=== PATIENT | female | born 1955 | race Caucasian/White ===

== ENCOUNTER → 2017-04-12 | Outpatient (CLI) | payer OTHER ==
[2017-04-12 12:54] LABS: ALANINE AMINOTRANSFERASE 31 U/L (9-52); ALBUMIN 3.9 g/dL (3.5-5.0); ALKALINE PHOSPHATASE 88 U/L (38-126); ANION GAP 9 (5-19); ASPARTATE AMINO TRANSFERASE 21 U/L (14-36); BILIRUBIN,DIRECT 0.4 mg/dL (0.0-0.4); BILIRUBIN,TOTAL 0.6 mg/dL (0.2-1.3); BLOOD UREA NITROGEN 24 mg/dL (7-20); CALCIUM 9.5 mg/dL (8.4-10.2); CARBON DIOXIDE 29 mmol/L (22-30); CHLORIDE 101 mmol/L (98-107); CHOLESTEROL 174.56 mg/dL (0-200); CREATININE RESULT 1.38 mg/dL (0.52-1.25); Direct HDL 53 mg/dL (>40); GLUCOSE 146 mg/dL (75-110); SODIUM 139.2 mmol/L (137-145); TOTAL PROTEIN 7.3 g/dL (6.3-8.2); TRIGLYCERIDES 123 mg/dL (<150)
[2017-04-12 13:12] LABS: DIRECT LDL 85 mg/dL (<100)
== END ==
LOC: CCC 11:25
DX: E11.8 Type 2 diabetes mellitus with unspecified complications (principal)
CPT/HCPCS: 36415; 80053; 80061; 82043; 83036

== ENCOUNTER → 2017-06-26 | Outpatient (CLI) | payer OTHER ==
--- NOTE | 2017-06-26 14:58 | WOMENS IMAGING REPORT ---
EXAM DESCRIPTION: RETROPERITONEAL U/S COMPLETED DATE/TIME: 06/26/2017 1:34 pm REASON FOR STUDY: CHRONIC KIDNEY DISEASE; N18.3 N18.3 CHRONIC KIDNEY DISEASE, STAGE 3 (MODERATE) COMPARISON: None. TECHNIQUE: Dynamic and static grayscale images acquired of the kidneys and bladder and recorded on P ACS. Additional selected color Doppler and spectral images recorded. LIMITATIONS: None. FINDINGS: RIGHT KIDNEY: Normal size. Increased cortical echogenicity. No solid or suspicious ma sses. No hydronephrosis. No calcifications. LEFT KIDNEY: Normal size. Increased cortical echogenicity. No solid or suspicious masses. No h ydronephrosis. No calcifications. BLADDER: No masses. OTHER: No other significant finding. IMPRESSION: CHRONIC MEDICAL RENAL DISEASE. NO HYDRONEPHROSIS. TECHNICAL DOCUMENTATION: JOB ID: [id number] [employer]- All Rights Reserved
== END ==
LOC: WI 13:06
DX: E11.22 Type 2 diabetes mellitus with diabetic chronic kidney disease (principal); I12.9 Hypertensive chronic kidney disease with stage 1 through stage 4 chronic kidney disease, or unspecified chronic kidney disease; N18.3 Chronic kidney disease, stage 3 (moderate)
CPT/HCPCS: 76770

== ENCOUNTER → 2017-08-08 | Outpatient (CLI) | payer OTHER ==
[2017-08-08 10:56] LABS: ABSOLUTE BASOPHILS # (AUTO) 0.1 10^3/uL (0.0-0.2); ABSOLUTE EOSINOPHILS # (AUTO) 0.2 10^3/uL (0.0-0.6); ABSOLUTE LYMPHOCYTES (AUTO) 2.7 10^3/uL (0.5-4.7); ABSOLUTE MONOCYTES (AUTO) 0.5 10^3/uL (0.1-1.4); ABSOLUTE NEUT (AUTO) 5.4 10^3/uL (1.7-8.2); BASOPHILS % (AUTO) 0.6 % (0-2); EOSINOPHILS % (AUTO) 2.7 % (0-6); HEMATOCRIT 38.1 % (36.0-47.0); HEMOGLOBIN 12.8 g/dL (12.0-15.5); HGB HCT DIFFERENCE 0.3; LYMPHOCYTES % (AUTO) 30.1 % (13-45); MEAN CORPUSCULAR HEMOGLOBIN 29.7 pg (27.0-33.4); MEAN CORPUSCULAR HGB CONC 33.7 g/dL (32.0-36.0); MEAN CORPUSCULAR VOLUME 88 fl (80-97); MONOCYTES % (AUTO) 5.4 % (3-13); RED BLOOD COUNT 4.31 10^6/uL (3.72-5.28); RED CELL DISTRIBUTION WIDTH 12.1 % (11.5-14.0); SEGMENTED NEUTROPHILS % (AUTO) 61.2 % (42-78); WHITE BLOOD COUNT 8.9 10^3/uL (4.0-10.5)
[2017-08-08 11:00] LABS: APPEARANCE,URINE SLIGHTLY-CLOUDY; BILIRUBIN,URINE NEGATIVE (NEGATIVE); GLUCOSE, URINE >=500 mg/dL (NEGATIVE); KETONES,URINE NEGATIVE (NEGATIVE); LEUKOCYTE ESTERASE,URINE MODERATE (NEGATIVE); NITRITE,URINE NEGATIVE (NEGATIVE); PROTEIN,URINE NEGATIVE (NEGATIVE)
[2017-08-08 11:18] LABS: ALANINE AMINOTRANSFERASE 27 U/L (9-52); ALKALINE PHOSPHATASE 81 U/L (38-126); ANION GAP 11 (5-19); ASPARTATE AMINO TRANSFERASE 17 U/L (14-36); BILIRUBIN,DIRECT 0.4 mg/dL (0.0-0.4); BILIRUBIN,TOTAL 0.5 mg/dL (0.2-1.3); BLOOD UREA NITROGEN 30 mg/dL (7-20); CALCIUM 9.2 mg/dL (8.4-10.2); CARBON DIOXIDE 29 mmol/L (22-30); CHLORIDE 99 mmol/L (98-107); CREATININE RESULT 1.57 mg/dL (0.52-1.25); GLUCOSE 184 mg/dL (75-110); IRON 90.1 ug/dL (37-170); POTASSIUM 4.5 mmol/L (3.6-5.0); SODIUM 139.3 mmol/L (137-145); TOTAL PROTEIN 7.1 g/dL (6.3-8.2)
== END ==
LOC: CCC 10:18
DX: I12.9 Hypertensive chronic kidney disease with stage 1 through stage 4 chronic kidney disease, or unspecified chronic kidney disease (principal); N18.3 Chronic kidney disease, stage 3 (moderate)
CPT/HCPCS: 36415; 80053; 81001; 82306; 82728; 83540; 83970; 85025

== ENCOUNTER → 2017-11-03 | Outpatient (CLI) | payer OTHER ==
[2017-11-03 12:28] LABS: ANION GAP 9 (5-19); BLOOD UREA NITROGEN 28 mg/dL (7-20); CALCIUM 9.4 mg/dL (8.4-10.2); CARBON DIOXIDE 31 mmol/L (22-30); CHLORIDE 96 mmol/L (98-107); GLUCOSE 249 mg/dL (75-110); POTASSIUM 5.2 mmol/L (3.6-5.0); SODIUM 136.3 mmol/L (137-145)
== END ==
LOC: CCC 11:22
DX: E11.9 Type 2 diabetes mellitus without complications (principal); N18.3 Chronic kidney disease, stage 3 (moderate)
CPT/HCPCS: 36415; 80048; 83036

== ENCOUNTER 2017-12-17 12:36 | Emergency (ER) | payer SELFPAY ==
--- NOTE | 2017-12-17 13:49 | ER Document Report ---
ED Breast Problem - General Chief Complaint: Breast Lump Stated Complaint: POSSIBLE BREAST ABSCESS Time Seen by Provider: 12/17/17 13:48 Notes: The patient is a 62-year-old female who presents with 1 day of a breast lump that is tender in her medial left breast that she noticed this morning. She says is worse this morning, but has gone away. Patient was supposed to have a mammogram, but has been putting off scheduling it. Patient also has a yeast rash below her left breast that she is applying antifungals prescribed by her primary care physician. She denies discharge from her nipples, fevers or increased pain. TRAVEL OUTSIDE OF THE [place] IN LAST 30 DAYS: No - Related Data Allergies/Adverse Reactions: No Known Allergies Allergy (Verified 10/30/13 22:25) Past Medical History - General Information source: Patient - Social History Smoking Status: Current Every Day Smoker Chew tobacco use (# tins/day): No Frequency of alcohol use: None Drug Abuse: None Family History: DM, Hypertension Patient has suicidal ideation: No Patient has homicidal ideation: No - Past Medical History Cardiac Medical History: Reports: Hx Hypertension Endocrine Medical History: Reports: Hx Diabetes Mellitus Type 2 Renal/ Medical History: Denies: Hx Peritoneal Dialysis - Immunizations Immunizations up to date: Yes Hx Diphtheria, Pertussis, Tetanus Vaccination: Yes Hx Pneumococcal Vaccination: 04/27/14 Review of Systems - Review of Systems Notes: REVIEW OF SYSTEMS: CONSTITUTIONAL: -fevers, -chills EENT: -eye pain, -difficulty swallowing, -nasal congestion CARDIOVASCULAR: -chest pain, -syncope. RESPIRATORY: -cough, -SOB GASTROINTESTINAL: -abdominal pain, -nausea, -vomiting, -diarrhea GENITOURINARY: -dysuria, -hematuria MUSCULOSKELETAL: -back pain, -neck pain SKIN: +left breast lump HEMATOLOGIC: -easy bruising or bleeding. LYMPHATIC: -swollen, enlarged glands. NEUROLOGICAL: -altered mental status or loss of consciousness, -headache, - neurologic symptoms PSYCHIATRIC: -anxiety, -depression. ALL OTHER SYSTEMS REVIEWED AND NEGATIVE. Physical Exam - Vital signs Vitals: Temp Pulse Resp BP Pulse Ox 97.8 F 94 20 118/71 96 12/17/17 12:46 12/17/17 12:46 12/17/17 12:46 12/17/17 12:46 04/22/18 12:46 - Notes Notes: PHYSICAL EXAMINATION: GENERAL: Well-appearing, well-nourished and in no acute distress. HEAD: Atraumatic, normocephalic. EYES: Pupils equal round and reactive to light, extraocular movements intact, sclera anicteric, conjunctiva are normal. ENT: nares patent, oropharynx clear without exudates. Moist mucous membranes. NECK: Normal range of motion, supple without lymphadenopathy BREAST: (Chaperoned by KALIA Duncan). Non-tender breasts, no lumps or abscesses seen or palpated. Erythematous rash below left breast, consistent with quincy. ABDOMEN: Soft, nontender, normoactive bowel sounds. No guarding, no rebound. No masses appreciated. EXTREMITIES: Normal range of motion, no pitting or edema. No cyanosis. NEUROLOGICAL: Cranial nerves grossly intact. Normal speech, normal gait. Normal sensory and motor exams. PSYCH: Normal mood, normal affect. Course - Re-evaluation Re-evalutation: No abscess or lump palpated. Patient said that it has gone away since this morning. Told her that she still must follow-up for a mammogram recommended by her primary care physician due to her age. She said she will call tomorrow for an appointment. - Vital Signs Vital signs: Temp Pulse Resp BP Pulse Ox 97.8 F 94 20 118/71 96 12/17/17 12:46 12/17/17 12:46 12/17/17 12:46 12/17/17 12:46 12/17/17 12:46 Discharge - Discharge Clinical Impression: Breast lump in female Condition: Stable Disposition: HOME, SELF-CARE Additional Instructions: You must follow-up with the [facility] for your mammogram. Breast Lumps There is a lump in your breast. We realize this will worry you. Most breast masses are not cancer. Most breast masses are fibrocystic disease, simple cysts, or fibroadenoma, which are benign. The first step is usually a mammogram or ultrasound of the breast. Your private physician, or a surgeon, can complete the evaluation. Be sure to keep your follow-up appointment. If the lump is malignant, early removal is your best chance of a cure. Referrals: [facility] [Outside] - Follow up as needed
[2017-12-17 14:06] VITALS: BP 132/75
== END 2017-12-17 14:05 | disposition home or self-care (01) ==
LOC: ER 12:36
DX: N63.0 Unspecified lump in unspecified breast (principal); B37.2 Candidiasis of skin and nail; I10 Essential (primary) hypertension; E11.9 Type 2 diabetes mellitus without complications; F17.200 Nicotine dependence, unspecified, uncomplicated
CPT/HCPCS: 99283

== ENCOUNTER 2018-01-01 14:20 | Emergency (ER) | payer SELFPAY ==
[2018-01-01 14:44] VITALS: BP 121/66
--- NOTE | 2018-01-01 16:13 | ER Document Report ---
HPI - HPI Pain Level: 5 Notes: Patient is a 62-year-old female with a history of type 1 diabetes and hypertension who presents to the ED complaining of a red rash underneath her left breast 3 weeks. The rash has a burning sensation to it. Patient states that she was evaluated by her primary care doctor who prescribed her mupirocin cream. Patient states that the cream has not been doing anything for her symptoms. She has not noticed any abscess or purulent discharge. She is eating and drinking without difficulties. She is urinating normally and having normal bowel moods. Denies any drug allergies. Denies any IV drug use. No other concerns or complaints at this time. Denies any headache, fever, neck pain, URI, sore throat, chest pain, palpitations, syncope, cough, shortness of breath, wheeze, dyspnea, abdominal pain, nausea/vomiting/diarrhea, urinary retention, dysuria, hematuria. - ROS Systems Reviewed and Negative: Yes All other systems reviewed and negative - REPRODUCTIVE Reproductive: DENIES: : Past Medical History - Social History Smoking Status: Never Smoker Chew tobacco use (# tins/day): No Frequency of alcohol use: None Drug Abuse: None Family History: DM, Hypertension Patient has suicidal ideation: No Patient has homicidal ideation: No - Past Medical History Cardiac Medical History: Reports: Hx Hypertension Endocrine Medical History: Reports: Hx Diabetes Mellitus Type 2 Renal/ Medical History: Denies: Hx Peritoneal Dialysis - Immunizations Immunizations up to date: Yes Hx Diphtheria, Pertussis, Tetanus Vaccination: Yes Hx Pneumococcal Vaccination: 04/27/14 Vertical Provider Document - CONSTITUTIONAL Agree With Documented VS: Yes Notes: PHYSICAL EXAMINATION: GENERAL: Well-appearing, well-nourished and in no acute distress. Chest: (accompanied by female nurse, balbina). There is a fungal infection ( macular, moist, no induration/abscess/streaks/discharge) noted to the crease of the left breast. Non-tender. LUNGS: Breath sounds clear to auscultation bilaterally and equal. No wheezes rales or rhonchi. HEART: Regular rate and rhythm without murmurs, rubs, gallops. NEUROLOGICAL: Normal speech, normal gait. Normal sensory, motor exams PSYCH: Normal mood, normal affect. SKIN: see 'chest' exam. Warm, Dry, normal turgor, no rashes or lesions noted. - INFECTION CONTROL TRAVEL OUTSIDE OF THE .[place]. IN LAST 30 DAYS: No Course - Re-evaluation Re-evalutation: 01/01/18 16:11 Patient is an afebrile, well-hydrated, 62-year-old female who presents to the ED with a fungal infection inferior to the left breast in the crease. Vitals are acceptable. PE is otherwise unremarkable. Patient was placed on mupirocin cream originally. It appears as though patient should be on an antifungal cream which I will send her home with. Because she is diabetic and the extent of the fungal infection, I will prophylactically give her Keflex to take as well as directed. Conservative measures otherwise for symptoms. Recheck with your PCM in 3-5 days. Return to the ED with any worsening/concerning symptoms otherwise as reviewed discharge. Patient is in agreement. - Vital Signs Vital signs: Temp Pulse Resp BP Pulse Ox 98.6 F 90 16 121/66 96 01/01/18 14:41 01/01/18 14:41 01/01/18 14:41 01/01/18 14:41 01/01/18 14:41 Discharge - Discharge Clinical Impression: Tinea cruris Condition: Stable Disposition: HOME, SELF-CARE Instructions: Skin Fungus ([facility]) Additional Instructions: Keep the skin clean and dry Wash with soap and water Tylenol/ibuprofen if needed Triple antibiotic ointment daily Take medication as directed Monitor for any worsening symptoms Recheck with your PCM in 3-5 days Consider consult with Dermatology for ongoing/worsening symptoms Return to the ED with any worsening symptoms and/or development of fever, headache, chest pain, palpitations, syncope, shortness of breath, trouble breathing, abdominal pain, n/v/d, abscess, purulent discharge, red streaks, worsening swelling, or other worsening symptoms that are concerning to you. Prescriptions: Clotrimazole [Antifungal] 1 applic TP BID #113 cream..g. Nystatin 1 applic TOP DAILY #1 unit Referrals: JEFF CARBAJAL DO [ACTIVE STAFF] - Follow up as needed
== END 2018-01-01 16:29 | disposition home or self-care (01) ==
LOC: ER 14:20
DX: B35.6 Tinea cruris (principal); E10.9 Type 1 diabetes mellitus without complications; I10 Essential (primary) hypertension
CPT/HCPCS: 99282

== ENCOUNTER → 2018-01-15 | Outpatient (CLI) | payer OTHER ==
[2018-01-15 11:05] LABS: ABSOLUTE BASOPHILS # (AUTO) 0.1 10^3/uL (0.0-0.2); ABSOLUTE EOSINOPHILS # (AUTO) 0.2 10^3/uL (0.0-0.6); ABSOLUTE LYMPHOCYTES (AUTO) 2.5 10^3/uL (0.5-4.7); ABSOLUTE MONOCYTES (AUTO) 0.6 10^3/uL (0.1-1.4); ABSOLUTE NEUT (AUTO) 6.1 10^3/uL (1.7-8.2); BASOPHILS % (AUTO) 0.7 % (0-2); EOSINOPHILS % (AUTO) 2.4 % (0-6); HEMATOCRIT 38.7 % (36.0-47.0); HEMOGLOBIN 13.2 g/dL (12.0-15.5); LYMPHOCYTES % (AUTO) 26.6 % (13-45); MEAN CORPUSCULAR HEMOGLOBIN 30.7 pg (27.0-33.4); MEAN CORPUSCULAR HGB CONC 34.2 g/dL (32.0-36.0); MEAN CORPUSCULAR VOLUME 90 fl (80-97); MONOCYTES % (AUTO) 5.8 % (3-13); PLATELET COUNT 237 10^3/uL (150-450); RED BLOOD COUNT 4.32 10^6/uL (3.72-5.28); RED CELL DISTRIBUTION WIDTH 12.1 % (11.5-14.0); SEGMENTED NEUTROPHILS % (AUTO) 64.5 % (42-78); TOTAL CELLS COUNTED % (AUTO) 100 %; WHITE BLOOD COUNT 9.5 10^3/uL (4.0-10.5)
[2018-01-15 11:36] LABS: ANION GAP 12 (5-19); BLOOD UREA NITROGEN 37 mg/dL (7-20); C-REACTIVE PROTEIN 17.6 mg/L (<10.0); CALCIUM 9.8 mg/dL (8.4-10.2); CARBON DIOXIDE 29 mmol/L (22-30); CHLORIDE 100 mmol/L (98-107); GLUCOSE 174 mg/dL (75-110); POTASSIUM 5.6 mmol/L (3.6-5.0); SODIUM 141.4 mmol/L (137-145)
[2018-01-15 11:46] LABS: ERYTHROCYTE SEDIMENTATION RATE 45 mm/hr (0-30)
== END ==
LOC: CCC 10:19
DX: E11.22 Type 2 diabetes mellitus with diabetic chronic kidney disease (principal); N18.3 Chronic kidney disease, stage 3 (moderate)
CPT/HCPCS: 36415; 80048; 85025; 85652; 86140

== ENCOUNTER → 2018-01-16 | Outpatient (CLI) | payer OTHER | LOC: CCC 16:04 | DX: E87.5 Hyperkalemia (principal) | CPT/HCPCS: 36415; 84132 ==

== ENCOUNTER → 2018-02-19 | Outpatient (CLI) | payer OTHER ==
[2018-02-19 11:55] LABS: ALANINE AMINOTRANSFERASE 29 U/L (9-52); ALBUMIN 4.1 g/dL (3.5-5.0); ALKALINE PHOSPHATASE 77 U/L (38-126); ANION GAP 10 (5-19); ASPARTATE AMINO TRANSFERASE 19 U/L (14-36); BILIRUBIN,DIRECT 0.3 mg/dL (0.0-0.4); BILIRUBIN,TOTAL 0.5 mg/dL (0.2-1.3); BLOOD UREA NITROGEN 56 mg/dL (7-20); CALCIUM 9.5 mg/dL (8.4-10.2); CARBON DIOXIDE 32 mmol/L (22-30); CHLORIDE 99 mmol/L (98-107); CHOLESTEROL 164.78 mg/dL (0-200); GLUCOSE 214 mg/dL (75-110); SODIUM 141.3 mmol/L (137-145); TOTAL PROTEIN 7.2 g/dL (6.3-8.2); TRIGLYCERIDES 135 mg/dL (<150)
[2018-02-19 12:06] LABS: DIRECT LDL 79 mg/dL (<100)
== END ==
LOC: OD 10:23
DX: E11.8 Type 2 diabetes mellitus with unspecified complications (principal)
CPT/HCPCS: 36415; 80053; 80061; 82272; 83036; 84443

== ENCOUNTER → 2018-03-20 | Outpatient (CLI) | payer OTHER ==
[2018-03-20 11:56] LABS: ANION GAP 13 (5-19); BLOOD UREA NITROGEN 43 mg/dL (7-20); CALCIUM 8.8 mg/dL (8.4-10.2); CARBON DIOXIDE 28 mmol/L (22-30); CHLORIDE 98 mmol/L (98-107); GLUCOSE 194 mg/dL (75-110); POTASSIUM 4.3 mmol/L (3.6-5.0); SODIUM 139.4 mmol/L (137-145)
== END ==
LOC: OD 11:05
DX: E11.8 Type 2 diabetes mellitus with unspecified complications (principal); I10 Essential (primary) hypertension
CPT/HCPCS: 36415; 80048

== ENCOUNTER → 2018-04-10 | Outpatient (CLI) | payer OTHER ==
[2018-04-10 10:36] LABS: ALANINE AMINOTRANSFERASE 23 U/L (9-52); ALBUMIN 4.1 g/dL (3.5-5.0); ALKALINE PHOSPHATASE 66 U/L (38-126); ANION GAP 13 (5-19); ASPARTATE AMINO TRANSFERASE 21 U/L (14-36); BILIRUBIN,DIRECT 0.3 mg/dL (0.0-0.4); BILIRUBIN,TOTAL 0.4 mg/dL (0.2-1.3); BLOOD UREA NITROGEN 43 mg/dL (7-20); CALCIUM 9.3 mg/dL (8.4-10.2); CARBON DIOXIDE 26 mmol/L (22-30); CHLORIDE 104 mmol/L (98-107); CHOLESTEROL 170.28 mg/dL (0-200); GLUCOSE 154 mg/dL (75-110); POTASSIUM 4.8 mmol/L (3.6-5.0); SODIUM 143.2 mmol/L (137-145); TOTAL PROTEIN 7.5 g/dL (6.3-8.2); TRIGLYCERIDES 76 mg/dL (<150)
[2018-04-10 10:47] LABS: DIRECT LDL 83 mg/dL (<100)
== END ==
LOC: CCC 08:11
DX: E11.8 Type 2 diabetes mellitus with unspecified complications (principal)
CPT/HCPCS: 36415; 80053; 80061; 82272; 83036; 84443

== ENCOUNTER → 2018-06-06 | Outpatient (CLI) | payer OTHER ==
[2018-06-06 13:49] LABS: IRON(TIBC) 35.8 ug/dL (37-170)
== END ==
LOC: OD 12:55
DX: E11.22 Type 2 diabetes mellitus with diabetic chronic kidney disease (principal); N18.3 Chronic kidney disease, stage 3 (moderate)
CPT/HCPCS: 36415; 82306; 82728; 83540; 83550; 83970; 84100; 84466

== ENCOUNTER 2018-09-26 09:10 | Emergency (ER) | payer SELFPAY ==
[2018-09-26 09:19] VITALS: BP 142/75
[2018-09-26] MEDS ORDERED: LIDOCAINE 5% (700 MG) TRANSDERMAL ADH..PATCH TP ONE (09:34)
--- NOTE | 2018-09-26 09:35 | ER Document Report ---
HPI - HPI Time Seen by Provider: 09/26/18 09:23 Pain Level: 2 Notes: Patient is a 63-year-old female with a history of diabetes who presents the emergency department complaining of left deltoid pain after receiving a flu vaccine 2-3 months ago. Patient states that she has had pain that has remained unchanged every day. Patient states that she was evaluated by her primary care doctor who told her to use warm soaks. Patient states that the pain does feel like a burning pain that will go down into the forearm on the posterior side at times. Patient states that she still able to perform her ADLs any difficulties. She has not noticed any bruising, deformity, swelling, or redness. Denies drug allergies. No other concerns or complaints. Denies any headache, fever, head injury, neck pain, changes in vision/speech/mentation/hearing, URI, sore throat, chest pain, palpitations, syncope, cough, shortness of breath, wheeze, dyspnea, abdominal pain, nausea/vomiting/diarrhea, urinary retention, dysuria, hematuria, loss of control of bowel or bladder, numbness/tingling, saddle anesthesia, muscle paralysis/weakness, or rash. - ROS Systems Reviewed and Negative: Yes All other systems reviewed and negative - REPRODUCTIVE Reproductive: DENIES: : Past Medical History - Social History Smoking Status: Unknown if Ever Smoked Family History: DM, Hypertension - Past Medical History Cardiac Medical History: Reports: Hx Hypertension Endocrine Medical History: Reports: Hx Diabetes Mellitus Type 2 Renal/ Medical History: Denies: Hx Peritoneal Dialysis - Immunizations Immunizations up to date: Yes Hx Diphtheria, Pertussis, Tetanus Vaccination: Yes Hx Pneumococcal Vaccination: 04/27/14 Vertical Provider Document - CONSTITUTIONAL Agree With Documented VS: Yes Notes: PHYSICAL EXAMINATION: GENERAL: Well-appearing, well-nourished and in no acute distress. NECK: Normal range of motion, supple without lymphadenopathy. Non-tender. Spurling negative. No rigidity/meningismus. LUNGS: Breath sounds clear to auscultation bilaterally and equal. No wheezes rales or rhonchi. HEART: Regular rate and rhythm without murmurs, rubs, gallops. Musculoskeletal: Lt shoulder: FROM to passive/active. Strength 5+/5. Neg impingement test. Neg speed test. No crepitus. No erythema or warmth. No deformity or ecchymosis. RC intact 5+/5 strength. There is no evidence of abscess/infection. + tenderness near the deltoid bursa. No asymmetry to arm size b/l. Extremities: No cyanosis, clubbing, or edema b/l. Peripheral pulses 2+. Capillary refill less than 3 seconds. NEUROLOGICAL: Normal speech, normal gait. Normal sensory, motor exams PSYCH: Normal mood, normal affect. SKIN: Warm, Dry, normal turgor, no rashes or lesions noted. - INFECTION CONTROL TRAVEL OUTSIDE OF THE [place] IN LAST 30 DAYS: No Course - Re-evaluation Re-evalutation: 09/26/18 09:33 Patient is an afebrile, well-hydrated, 63-year-old female who presents to the ED with left arm pain, unspecified, but suspect possible bursitis. Vitals are acceptable without any significant tachycardia, tachypnea, or hypoxia. PE is otherwise unremarkable for any neurovascular compromise, obvious tendon/ligament rupture, obvious fracture/dislocation, septic joint, DVT. There is no bony tenderness and no asymmetry to the UE's b/l. No evidence of infection. Lidoderm patch provided. Patient is nontoxic-appearing. No other labs or imaging warranted at this time based on H&P. Conservative measures otherwise for symptoms. Recheck with your PCM in 3-5 days. Consider consult orthopedics. Return to the ED with any worsening/concerning symptoms otherwise as reviewed in discharge. Patient is in agreement. - Vital Signs Vital signs: Temp Pulse Resp BP Pulse Ox 98.4 F 76 20 142/75 H 100 09/26/18 09:15 09/26/18 09:15 09/26/18 09:15 09/26/18 09:15 09/26/18 09:15 Discharge - Discharge Clinical Impression: Left arm pain Condition: Stable Disposition: HOME, SELF-CARE Additional Instructions: Rest, Ice, Compression, Elevation Tylenol/ibuprofen as needed Light stretches daily Strength exercises as able Moist heat and massage may help F/u with your PCP in 3-5 days for a recheck Consider consult(s) with Orthopedics/physical therapy for ongoing/worsening symptoms Return to the ED with any worsening symptoms and/or development of fever, headache, chest pain, palpitations, syncope, shortness of breath, trouble breathing, abdominal pain, n/v/d, muscle weakness/paralysis, numbness/tingling, swelling, redness, or other worsening symptoms that are concerning to you. Forms: Elevated Blood Pressure Referrals: [facility] [Primary Care Provider] - Follow up in 3-5 days [facility] [Provider Group] - Follow up as needed
== END 2018-09-26 09:45 | disposition home or self-care (01) ==
LOC: ER 09:10
DX: M79.18 Myalgia, other site (principal); E11.9 Type 2 diabetes mellitus without complications; I10 Essential (primary) hypertension
CPT/HCPCS: 99283

== ENCOUNTER → 2018-11-15 | Outpatient (CLI) | payer OTHER ==
[2018-11-15 10:47] LABS: APPEARANCE,URINE CLEAR; BILIRUBIN,URINE NEGATIVE (NEGATIVE); COLOR,URINE YELLOW; GLUCOSE, URINE >=500 mg/dL (NEGATIVE); KETONES,URINE NEGATIVE (NEGATIVE); LEUKOCYTE ESTERASE,URINE SMALL (NEGATIVE); NITRITE,URINE NEGATIVE (NEGATIVE); PROTEIN,URINE NEGATIVE (NEGATIVE); URINE SPECIFIC GRAVITY 1.018; UROBILINOGEN,URINE NEGATIVE mg/dL (<2.0)
[2018-11-15 11:09] LABS: ALANINE AMINOTRANSFERASE 23 U/L (9-52); ALKALINE PHOSPHATASE 89 U/L (38-126); ANION GAP 12 (5-19); ASPARTATE AMINO TRANSFERASE 19 U/L (14-36); BILIRUBIN,DIRECT 0.3 mg/dL (0.0-0.4); BILIRUBIN,TOTAL 0.5 mg/dL (0.2-1.3); BLOOD UREA NITROGEN 44 mg/dL (7-20); CALCIUM 9.7 mg/dL (8.4-10.2); CARBON DIOXIDE 27 mmol/L (22-30); CHLORIDE 99 mmol/L (98-107); GLUCOSE 206 mg/dL (75-110); POTASSIUM 4.7 mmol/L (3.6-5.0); SODIUM 137.7 mmol/L (137-145); TOTAL PROTEIN 7.3 g/dL (6.3-8.2)
== END ==
LOC: CCC 10:07
DX: E11.22 Type 2 diabetes mellitus with diabetic chronic kidney disease (principal); I12.9 Hypertensive chronic kidney disease with stage 1 through stage 4 chronic kidney disease, or unspecified chronic kidney disease; N18.3 Chronic kidney disease, stage 3 (moderate)
CPT/HCPCS: 36415; 80053; 81001; 83036; 86140

== ENCOUNTER → 2019-01-22 | Outpatient (CLI) | payer OTHER ==
[2019-01-22 11:00] LABS: ABSOLUTE EOSINOPHILS # (AUTO) 0.3 10^3/uL (0.0-0.6); ABSOLUTE LYMPHOCYTES (AUTO) 2.1 10^3/uL (0.5-4.7); ABSOLUTE MONOCYTES (AUTO) 0.6 10^3/uL (0.1-1.4); ABSOLUTE NEUT (AUTO) 5.7 10^3/uL (1.7-8.2); BASOPHILS % (AUTO) 0.5 % (0-2); HEMOGLOBIN 12.2 g/dL (12.0-15.5); MEAN CORPUSCULAR HGB CONC 33.1 g/dL (32.0-36.0); MEAN CORPUSCULAR VOLUME 91 fl (80-97); MONOCYTES % (AUTO) 6.5 % (3-13); PLATELET COUNT 219 10^3/uL (150-450); RED BLOOD COUNT 4.08 10^6/uL (3.72-5.28); RED CELL DISTRIBUTION WIDTH 12.7 % (11.5-14.0); TOTAL CELLS COUNTED % (AUTO) 100 %; WHITE BLOOD COUNT 8.7 10^3/uL (4.0-10.5)
[2019-01-22 11:15] LABS: ALANINE AMINOTRANSFERASE 22 U/L (9-52); ALBUMIN 4.1 g/dL (3.5-5.0); ALKALINE PHOSPHATASE 91 U/L (38-126); ANION GAP 13 (5-19); ASPARTATE AMINO TRANSFERASE 19 U/L (14-36); BILIRUBIN,DIRECT 0.3 mg/dL (0.0-0.4); BILIRUBIN,TOTAL 0.5 mg/dL (0.2-1.3); BLOOD UREA NITROGEN 51 mg/dL (7-20); CALCIUM 9.2 mg/dL (8.4-10.2); CARBON DIOXIDE 24 mmol/L (22-30); CHLORIDE 101 mmol/L (98-107); GLUCOSE 253 mg/dL (75-110); POTASSIUM 4.8 mmol/L (3.6-5.0); SODIUM 138.4 mmol/L (137-145); TOTAL PROTEIN 7.2 g/dL (6.3-8.2)
[2019-01-23 10:06] LABS: CHOLESTEROL 120.75 mg/dL (0-200); TRIGLYCERIDES 103 mg/dL (<150)
[2019-01-23 10:16] LABS: DIRECT LDL 52 mg/dL (<100)
== END ==
LOC: CCC 10:11
DX: E11.8 Type 2 diabetes mellitus with unspecified complications (principal); I12.9 Hypertensive chronic kidney disease with stage 1 through stage 4 chronic kidney disease, or unspecified chronic kidney disease; N18.3 Chronic kidney disease, stage 3 (moderate)
CPT/HCPCS: 36415; 80053; 80061; 83036; 84443; 85025

== ENCOUNTER → 2019-02-11 | Outpatient (CLI) | payer OTHER ==
[2019-02-11 11:22] LABS: ABSOLUTE EOSINOPHILS # (AUTO) 0.4 10^3/uL (0.0-0.6); ABSOLUTE LYMPHOCYTES (AUTO) 2.3 10^3/uL (0.5-4.7); ABSOLUTE MONOCYTES (AUTO) 0.5 10^3/uL (0.1-1.4); BASOPHILS % (AUTO) 0.4 % (0-2); EOSINOPHILS % (AUTO) 3.8 % (0-6); HEMATOCRIT 37.4 % (36.0-47.0); HEMOGLOBIN 12.6 g/dL (12.0-15.5); LYMPHOCYTES % (AUTO) 22.8 % (13-45); MEAN CORPUSCULAR HEMOGLOBIN 30.3 pg (27.0-33.4); MEAN CORPUSCULAR HGB CONC 33.6 g/dL (32.0-36.0); MEAN CORPUSCULAR VOLUME 90 fl (80-97); MONOCYTES % (AUTO) 4.7 % (3-13); PLATELET COUNT 234 10^3/uL (150-450); RED BLOOD COUNT 4.15 10^6/uL (3.72-5.28); RED CELL DISTRIBUTION WIDTH 12.4 % (11.5-14.0); SEGMENTED NEUTROPHILS % (AUTO) 68.3 % (42-78); TOTAL CELLS COUNTED % (AUTO) 100 %; WHITE BLOOD COUNT 10.2 10^3/uL (4.0-10.5)
[2019-02-11 11:43] LABS: ANION GAP 9 (5-19); BLOOD UREA NITROGEN 34 mg/dL (7-20); CALCIUM 9.7 mg/dL (8.4-10.2); CARBON DIOXIDE 29 mmol/L (22-30); CHLORIDE 101 mmol/L (98-107); GLUCOSE 202 mg/dL (75-110); PHOSPHORUS 3.8 mg/dL (2.5-4.5); POTASSIUM 5.7 mmol/L (3.6-5.0)
[2019-02-11 11:48] LABS: APPEARANCE,URINE SLIGHTLY-CLOUDY; BILIRUBIN,URINE NEGATIVE (NEGATIVE); COLOR,URINE YELLOW; GLUCOSE, URINE 150 mg/dL (NEGATIVE); KETONES,URINE NEGATIVE (NEGATIVE); LEUKOCYTE ESTERASE,URINE LARGE (NEGATIVE); NITRITE,URINE NEGATIVE (NEGATIVE); PROTEIN,URINE NEGATIVE (NEGATIVE); URINE SPECIFIC GRAVITY 1.024; UROBILINOGEN,URINE NEGATIVE mg/dL (<2.0)
== END ==
LOC: CCC 10:45
DX: I12.9 Hypertensive chronic kidney disease with stage 1 through stage 4 chronic kidney disease, or unspecified chronic kidney disease (principal); N18.3 Chronic kidney disease, stage 3 (moderate); E11.22 Type 2 diabetes mellitus with diabetic chronic kidney disease
CPT/HCPCS: 36415; 80048; 81001; 83970; 84100; 85025

== ENCOUNTER → 2019-02-19 | Outpatient (CLI) | payer OTHER | LOC: CCC 09:41 | DX: E78.6 Lipoprotein deficiency (principal) | CPT/HCPCS: 36415; 84132 ==

== ENCOUNTER → 2019-02-22 | Outpatient (CLI) | payer OTHER ==
--- NOTE | 2019-02-22 10:28 | RADIOLOGY REPORT (SQ) ---
EXAM DESCRIPTION: U/S RETROPERITON (RENAL/AORTA) COMPLETED DATE/TIME: 02/22/2019 9:56 am REASON FOR STUDY: N18.3 CHRONIC KIDNEY DISEASE, STAGE 3 (MODERATE) N18.3 CHRONIC KIDNEY DISEASE, ST AGE 3 (MODERATE) COMPARISON: 06/26/2017 TECHNIQUE: Dynamic and static grayscale images acquired of the kidneys and bladder and recorded on P ACS. Additional selected color Doppler and spectral images recorded. LIMITATIONS: None. FINDINGS: RIGHT KIDNEY: Normal size, 11.1 cm. Normal echogenicity. No solid or suspicious masses. No hydronephrosis. No calcifications. LEFT KIDNEY: Normal size, 11.3 cm. Normal echogenicity. No solid or suspicious masses. No hydronephr osis. No calcifications. BLADDER: Incompletely filled and poorly evaluated. Left ureteral jet is seen. OTHER FINDINGS: No other significant finding. IMPRESSION: No acute finding. Bladder is not well evaluated. TECHNICAL DOCUMENTATION: JOB ID: [id number] [employer]- All Rights Reserved Reading location - IP/workstation name: [email or web address]
== END ==
LOC: RAD 09:38
PROVIDERS: ATTEND Internal Medicine
DX: N18.3 Chronic kidney disease, stage 3 (moderate) (principal); I12.9 Hypertensive chronic kidney disease with stage 1 through stage 4 chronic kidney disease, or unspecified chronic kidney disease; E11.9 Type 2 diabetes mellitus without complications
CPT/HCPCS: 76770

== ENCOUNTER → 2019-03-07 | Outpatient (CLI) | payer OTHER ==
--- NOTE | 2019-03-07 14:25 | WOMENS IMAGING REPORT ---
EXAM DESCRIPTION: PINK WARRIOR BILATERAL SCREEN COMPLETED DATE/TIME: 03/07/2019 1:48 pm REASON FOR STUDY: Z12.31 ENCOUNTER FOR SCREENING MAMMOGRAM FOR MALIGNANT NEOPLASM OF BREAST Z12.31 ENCNTR SCREEN MAMMOGRAM FOR MALIGNANT NEOPLASM OF DIANA COMPARISON: None. EXAM PARAMETERS: Standard craniocaudal and mediolateral oblique views of each breast recorded using digital acquisition. Read with the assistance of CAD. [facility] - [employer] Safety Manager Version 9.2 LIMITATIONS: None. FINDINGS: No suspicious masses, suspicious calcifications or architectural distortion. No areas of c oncern. IMPRESSION: Negative MAMMOGRAM. BIRADS 1 BREAST DENSITY: a. The breasts are almost entirely fatty. BIRAD: ASSESSMENT: 1 NEGATIVE RECOMMENDATION: ROUTINE SCREENING COMMENT: The patient has been notified of the results by letter per MQSA requirements. Additional no tification policies are in place for contacting patient with suspicious or incomplete findings. Quality ID #225: The [employer] recommends an annual screening mammogram for women aged 40 years or over. This facility utilizes a reminder system to ensure that all patients receive reminder letters, and/or direct phone calls for appointments. This includes reminders for routine scr eening mammograms, diagnostic mammograms, or other Breast Imaging Interventions when appropriate. Th is patient will be placed in the appropriate reminder system. TECHNICAL DOCUMENTATION: FINDING NUMBER: (1) ASSESSMENT: (1) JOB ID: [id number] [employer]- All Rights Reserved Reading location - IP/workstation name: [email or web address]
== END ==
LOC: WI 12:48
DX: Z12.31 Encounter for screening mammogram for malignant neoplasm of breast (principal)
CPT/HCPCS: 77067

== ENCOUNTER 2019-03-10 00:20 | Emergency (ER) | payer OTHER ==
[2019-03-10] MEDS ORDERED: FLUCONAZOLE 100 MG TABLET PO ONE (04:06)
--- NOTE | 2019-03-10 04:09 | ER Document Report ---
HPI - HPI Time Seen by Provider: 03/10/19 03:29 Pain Level: 5 Notes: Patient is a 64-year-old female presented to the emergency department chief complaint of rash under her left breast. Patient reports she first noticed this rash yesterday. Patient reports history of similar rash in the past, states last time it was a yeast rash. Patient denies any fevers. - CONSTITUTIONAL Constitutional: DENIES: Fever, Chills - REPRODUCTIVE Reproductive: DENIES: : Past Medical History - General Information source: Patient - Social History Smoking Status: Never Smoker Chew tobacco use (# tins/day): No Frequency of alcohol use: None Drug Abuse: None Family History: DM, Hypertension Patient has suicidal ideation: No Patient has homicidal ideation: No - Past Medical History Cardiac Medical History: Reports: Hx Hypertension Endocrine Medical History: Reports: Hx Diabetes Mellitus Type 2 Renal/ Medical History: Denies: Hx Peritoneal Dialysis - Immunizations Immunizations up to date: Yes Hx Diphtheria, Pertussis, Tetanus Vaccination: Yes Hx Pneumococcal Vaccination: 04/27/14 Vertical Provider Document - CONSTITUTIONAL Notes: PHYSICAL EXAMINATION: GENERAL: Well-appearing, well-nourished and in no acute distress. HEAD: Atraumatic, normocephalic. EYES: Pupils equal round extraocular movements intact, conjunctiva are normal. ENT: Nares patent NECK: Normal range of motion LUNGS: No respiratory distress Musculoskeletal: Normal range of motion NEUROLOGICAL: Normal speech, normal gait. PSYCH: Normal mood, normal affect. SKIN: Erythema with satellite lesions noted under left breast consistent with Jody infection. - INFECTION CONTROL TRAVEL OUTSIDE OF THE [place] IN LAST 30 DAYS: No Course - Re-evaluation Re-evalutation: Patient's examination is consistent with candidia. Will start on appropriate medications and discharged home. Encourage patient to follow-up with primary care. The patient's emergency department workup and current diagnosis were explained to the patient and or family. Follow-up instructions were provided. Medications if prescribed were discussed. Instructions for when to return to the emergency department including specific worrisome symptoms were discussed with the patient and/or family. - Vital Signs Vital signs: Temp Pulse Resp BP Pulse Ox 98.1 F 101 H 20 116/65 96 03/10/19 00:34 03/10/19 00:34 03/10/19 00:34 03/10/19 00:34 03/10/19 00:34 Discharge - Discharge Clinical Impression: Jody infection Condition: Stable Disposition: HOME, SELF-CARE Additional Instructions: You were given a dose of an oral medication for the yeast infection here in the emergency department. Please try to get the prescription for nystatin filled at the pharmacy. If it is not affordable you can also purchase [id number] Monistat generic vaginal cream and generic hydrocortisone cream, mix equal parts of the two together and applied to the area 2-3 times daily. Follow-up with your primary care provider in the next 5 to 7 days for recheck. Return to the emergency department with any new or worsening symptoms to include worsening or development of fever. Prescriptions: Nystatin [Mycostatin Cream 15 gm] 1 applic TP BID #30 gm Referrals: [facility] [Primary Care Provider] - Follow up as needed
[2019-03-10 04:30] VITALS: BP 116/69
== END 2019-03-10 04:30 | disposition home or self-care (01) ==
LOC: ER 00:20
DX: B37.9 Candidiasis, unspecified (principal); E11.9 Type 2 diabetes mellitus without complications; I10 Essential (primary) hypertension
CPT/HCPCS: 99282

== ENCOUNTER → 2019-03-15 | Outpatient (CLI) | payer OTHER ==
--- NOTE | 2019-03-15 13:38 | RADIOLOGY REPORT (SQ) ---
EXAM DESCRIPTION: UPPER GI/SM BOWEL COMPLETED DATE/TIME: 03/15/2019 12:22 pm REASON FOR STUDY: MELENA (K92.1) K92.1 MELENA COMPARISON: None. TECHNIQUE: Under fluoroscopic guidance, patient ingested effervescent granules followed by thick an d thin barium. Fluoroscopic spot images and routine radiographic images acquired and stored on PACS . Following evaluation of esophagus and stomach, additional barium administered with serial delayed ab dominal radiographs until colonic identification. Fluoroscopic images recorded of the terminal ileu m. 12 MM BARIUM TABLET GIVEN: Yes. No significant delay in passage. FLUOROSCOPY TIME: 2 minutes 35 seconds 40 images saved to PACS. LIMITATIONS: None. FINDINGS: NEUROMUSCULAR COORDINATION OF SWALLOW: Normal. No aspiration. ESOPHAGEAL MOTILITY: Normal peristalsis. No esophageal spasm. ESOPHAGEAL MUCOSA: Mild distal esophageal mucosal irregularity from esophagitis. GASTRO-ESOPHAGEAL JUNCTION: Small hiatal hernia with trace gastroesophageal reflux. STOMACH: No discrete gastric ulcer. There are thickened gastric folds particularly along the antrum, worrisome for hypertrophic gastritis GASTRIC OUTLET: No delay in emptying. Normal pylorus. DUODENAL BULB: Normal distension. There are thickened folds likely related to peptic disease. No ul cer DUODENUM: Normal distention. There are thickened folds likely from peptic disease. No ulcer. PROXIMAL SMALL BOWEL: Normal as visualized. JEJUNUM: Normal mucosal pattern. No dilatation, segmentation, strictures or masses. ILEUM: Normal mucosal pattern. No dilatation, segmentation, strictures or masses. TERMINAL ILEUM AND ILEO-CECAL VALVE: Normal mucosal pattern without cobble-stoning or stricture. Nor mal compression. PROXIMAL COLON: Incompletely imaged. No abnormality. NON-GI TRACT STRUCTURES: No significant finding. OTHER: No other significant finding. IMPRESSION: Distal esophageal mucosal irregularity worrisome for salvage itis. Tiny sliding hiatal hernia with gastroesophageal reflux Thickened gastric antral folds and duodenum folds likely from peptic disease Remainder of the small bowel follow-through is otherwise unremarkable COMMENT: Quality ID 145: Final reports for procedures using fluoroscopy that document radiation exp osure indices, or exposure time and number of fluorographic images (if radiation exposure indices are not available) TECHNICAL DOCUMENTATION: JOB ID: [id number] [employer]- All Rights Reserved Reading location - IP/workstation name: [email or web address]
== END ==
LOC: RAD 08:24
DX: K92.1 Melena (principal); K21.9 Gastro-esophageal reflux disease without esophagitis; K44.9 Diaphragmatic hernia without obstruction or gangrene
CPT/HCPCS: 74249

== ENCOUNTER → 2019-03-21 | Outpatient (CLI) | payer OTHER ==
[2019-03-26 07:08] LABS: HELICOBACTER PYLORI IGA AB <9.0 units (0.0-8.9); HELICOBACTER PYLORI IGG AB <0.80 (0.00-0.79)
== END ==
LOC: CCC 16:16
DX: K29.80 Duodenitis without bleeding (principal)
CPT/HCPCS: 36415; 86677

== ENCOUNTER → 2019-09-04 | Outpatient (CLI) | payer SELFPAY ==
[2019-09-04 10:37] LABS: APPEARANCE,URINE SLIGHTLY-CLOUDY; COLOR,URINE YELLOW
[2019-09-04 10:38] LABS: BILIRUBIN,URINE NEGATIVE (NEGATIVE); GLUCOSE, URINE 150 mg/dL (NEGATIVE); KETONES,URINE NEGATIVE (NEGATIVE); NITRITE,URINE NEGATIVE (NEGATIVE); PROTEIN,URINE NEGATIVE (NEGATIVE); URINE SPECIFIC GRAVITY 1.015; UROBILINOGEN,URINE NEGATIVE mg/dL (<2.0)
[2019-09-04 10:39] LABS: LEUKOCYTE ESTERASE,URINE MODERATE (NEGATIVE)
[2019-09-04 10:52] LABS: HEMATOCRIT 34.1 % (36.0-47.0); HEMOGLOBIN 11.5 g/dL (12.0-15.5); MEAN CORPUSCULAR HEMOGLOBIN 30.3 pg (27.0-33.4); MEAN CORPUSCULAR HGB CONC 33.7 g/dL (32.0-36.0); MEAN CORPUSCULAR VOLUME 90 fl (80-97); PLATELET COUNT 236 10^3/uL (150-450); RED BLOOD COUNT 3.79 10^6/uL (3.72-5.28); RED CELL DISTRIBUTION WIDTH 12.5 % (11.5-14.0); WHITE BLOOD COUNT 9.4 10^3/uL (4.0-10.5)
[2019-09-04 11:15] LABS: ANION GAP 11 (5-19); BLOOD UREA NITROGEN 32 mg/dL (7-20); CALCIUM 9.6 mg/dL (8.4-10.2); CARBON DIOXIDE 30 mmol/L (22-30); CHLORIDE 98 mmol/L (98-107); GLUCOSE 188 mg/dL (75-110); POTASSIUM 4.6 mmol/L (3.6-5.0)
== END ==
LOC: OD 09:51
PROVIDERS: ATTEND Physician Assistant Medical
DX: I12.9 Hypertensive chronic kidney disease with stage 1 through stage 4 chronic kidney disease, or unspecified chronic kidney disease (principal); N18.3 Chronic kidney disease, stage 3 (moderate); E11.22 Type 2 diabetes mellitus with diabetic chronic kidney disease; E87.5 Hyperkalemia
CPT/HCPCS: 36415; 81001

== ENCOUNTER → 2019-09-04 | Outpatient (CLI) | payer OTHER ==
[2019-09-04 10:30] LABS: APPEARANCE,URINE SLIGHTLY-CLOUDY; BILIRUBIN,URINE NEGATIVE (NEGATIVE); COLOR,URINE YELLOW; GLUCOSE, URINE 150 mg/dL (NEGATIVE); KETONES,URINE NEGATIVE (NEGATIVE); LEUKOCYTE ESTERASE,URINE MODERATE (NEGATIVE); NITRITE,URINE NEGATIVE (NEGATIVE); PROTEIN,URINE NEGATIVE (NEGATIVE); URINE SPECIFIC GRAVITY 1.015; UROBILINOGEN,URINE NEGATIVE mg/dL (<2.0)
[2019-09-04 10:39] LABS: ABSOLUTE BASOPHILS # (AUTO) 0.1 10^3/uL (0.0-0.2); ABSOLUTE EOSINOPHILS # (AUTO) 0.3 10^3/uL (0.0-0.6); ABSOLUTE LYMPHOCYTES (AUTO) 1.8 10^3/uL (0.5-4.7); ABSOLUTE MONOCYTES (AUTO) 0.6 10^3/uL (0.1-1.4); ABSOLUTE NEUT (AUTO) 6.6 10^3/uL (1.7-8.2); BASOPHILS % (AUTO) 0.6 % (0-2); EOSINOPHILS % (AUTO) 3.5 % (0-6); HEMATOCRIT 34.1 % (36.0-47.0); HEMOGLOBIN 11.5 g/dL (12.0-15.5); LYMPHOCYTES % (AUTO) 18.7 % (13-45); MEAN CORPUSCULAR HEMOGLOBIN 30.3 pg (27.0-33.4); MEAN CORPUSCULAR HGB CONC 33.7 g/dL (32.0-36.0); MEAN CORPUSCULAR VOLUME 90 fl (80-97); MONOCYTES % (AUTO) 6.5 % (3-13); PLATELET COUNT 236 10^3/uL (150-450); RED BLOOD COUNT 3.79 10^6/uL (3.72-5.28); RED CELL DISTRIBUTION WIDTH 12.5 % (11.5-14.0); SEGMENTED NEUTROPHILS % (AUTO) 70.7 % (42-78); TOTAL CELLS COUNTED % (AUTO) 100 %; WHITE BLOOD COUNT 9.4 10^3/uL (4.0-10.5)
[2019-09-04 11:11] LABS: ANION GAP 11 (5-19); BLOOD UREA NITROGEN 32 mg/dL (7-20); CALCIUM 9.6 mg/dL (8.4-10.2); CARBON DIOXIDE 30 mmol/L (22-30); CHLORIDE 98 mmol/L (98-107); GLUCOSE 188 mg/dL (75-110); POTASSIUM 4.6 mmol/L (3.6-5.0)
== END ==
LOC: CCC 09:32
DX: E11.8 Type 2 diabetes mellitus with unspecified complications (principal); I10 Essential (primary) hypertension; C18.9 Malignant neoplasm of colon, unspecified
CPT/HCPCS: 36415; 80048; 81001; 83036; 85025

== ENCOUNTER 2019-10-23 17:12 | Emergency (ER) | payer OTHER ==
[2019-10-23] MEDS ORDERED: IBUPROFEN 800 MG TABLET PO ONE (19:33)
--- NOTE | 2019-10-23 19:36 | ER Document Report ---
HPI - HPI Time Seen by Provider: 10/23/19 19:27 Pain Level: 5 Context: Patient is a 64-year-old female presents emergency department with a chief complaint of right arm pain. Patient reports around 2:45 PM this afternoon she was stepping into her friend's garage when she went to lean up on her friend's car with the right arm and tripped. Patient reports she landed on her right arm, states that her arm was discombobulated and behind her. Patient reports since she has had right shoulder and right upper arm pain. Patient denies numbness or tingling distal to the injury. No obvious deformity. Patient has not had anything for her discomfort. Patient denies use of blood thinners. Patient denies any other injury. Patient denies head injury or loss of consciousness. - REPRODUCTIVE Reproductive: DENIES: : Past Medical History - General Information source: Patient - Social History Smoking Status: Never Smoker Lives with: Family Family History: DM, Hypertension Patient has suicidal ideation: No Patient has homicidal ideation: No - Past Medical History Cardiac Medical History: Reports: Hx Hypertension Pulmonary Medical History: Reports: None EENT Medical History: Reports: None Neurological Medical History: Reports: None Endocrine Medical History: Reports: Hx Diabetes Mellitus Type 2 Renal/ Medical History: Reports: None. Denies: Hx Peritoneal Dialysis Malignancy Medical History: Reports: None GI Medical History: Reports: None Musculoskeletal Medical History: Reports None Skin Medical History: Reports None Psychiatric Medical History: Reports: None Traumatic Medical History: Reports: None Infectious Medical History: Reports: None Surgical Hx: Negative - Immunizations Immunizations up to date: Yes Hx Diphtheria, Pertussis, Tetanus Vaccination: Yes Hx Pneumococcal Vaccination: 04/27/14 Vertical Provider Document - CONSTITUTIONAL Agree With Documented VS: Yes Exam Limitations: No Limitations General Appearance: Mild Distress - INFECTION CONTROL TRAVEL OUTSIDE OF THE [place] IN LAST 30 DAYS: No - HEENT HEENT: Atraumatic, Normal ENT Exam, Normocephalic, PERRLA - NECK Neck: Normal Inspection - RESPIRATORY Respiratory: Breath Sounds Normal, No Respiratory Distress - CARDIOVASCULAR Cardiovascular: Regular Rate, Regular Rhythm - GI/ABDOMEN Gastrointestinal: Abdomen Soft, Abdomen Non-Tender, Normal Bowel Sounds - MUSCULOSKELETAL/EXTREMETIES Notes: Patient has diffuse tenderness to the right upper arm, specifically of the humerus. There is no erythema, ecchymosis, edema or obvious deformity. Patient reports she is unable to lift the right arm as it causes significant pain. Patient has a palpable +2 brachial and radial pulse. There is no tenderness to the right forearm, wrist or hand. - NEURO Level of Consciousness: Awake, Alert, Appropriate - DERM Integumentary: Warm, Dry, No Rash Course - Re-evaluation Re-evalutation: 10/23/19 19:36 Patient reports she is not driving. Patient is tearful after physical exam. I did offer her [place]. Patient reports she would like to just received ibuprofen at this time. Will order a right shoulder and right humerus x-ray. - Vital Signs Vital signs: Temp Pulse Resp BP Pulse Ox 97.8 F 91 20 133/77 H 98 10/23/19 17:46 10/23/19 17:46 10/23/19 17:46 10/23/19 17:46 10/23/19 17:46 - Diagnostic Test Radiology reviewed: Reports reviewed Radiology results interpreted by me: 10/23/19 20:36 Humerus X-Ray 10/23/19 19:31 IMPRESSION: Minimally displaced greater tuberosity fracture. Shoulder X-Ray 10/23/19 19:31 IMPRESSION: Minimally displaced greater tuberosity fracture. Discharge - Discharge Clinical Impression: Right arm pain Greater tuberosity of humerus fracture Qualifiers: Encounter type: initial encounter Fracture type: closed Fracture alignment: displaced Laterality: right Qualified Code(s): S42.251A - Displaced fracture of greater tuberosity of right humerus, initial encounter for closed fracture Fall Qualifiers: Encounter type: initial encounter Qualified Code(s): W19.XXXA - Unspecified fall, initial encounter Condition: Stable Disposition: HOME, SELF-CARE Instructions: Sling as Treatment ([facility]) Additional Instructions: Fracture Proximal Humerus There is a fracture at the upper end of the humerus, near the shoulder joint. Your physician has assessed the fracture's severity and has determined that it will heal well without surgery or "setting." The typical shoulder fracture doesn't need a cast. It's best treated by binding the arm down with a special sling. Ice packs are used to reduce pain and swelling. After early healing has occurred, [id number] exercises are prescribed for the shoulder. Complete healing may take three to six weeks, depending on the age of the patient and the severity of the fracture. Call the doctor or return at once if the arm becomes numb, or if pain or sw elling become severe. Referrals: BEN WOOD MD [ACTIVE PROVISIONAL STAFF] - Follow up as needed CLAUDIA NG MD [Primary Care Provider] - Follow up as needed
--- NOTE | 2019-10-23 20:20 | RADIOLOGY REPORT (SQ) ---
XR HUMERUS, XR SHOULDER 2 OR MORE VIEWS CLINICAL STATEMENT: Fall COMPARISON: None FINDINGS: Bony alignment is anatomic. Minimally displaced greater tuberosity fracture. Bones are osteopenic. Mild acromioclavicular degenerative changes. The distal humerus is intact. IMPRESSION: Minimally displaced greater tuberosity fracture.
[2019-10-23] MEDS ORDERED: HYDROCODONE/ACETAMINOPHEN 5-325 MG (6 TAB/ER DISP) PO PRN (23:24)
--- NOTE | 2019-10-23 23:29 | ER Document Report ---
ED General - General Chief Complaint: Arm Injury Stated Complaint: FALL/RIGHT ARM PAIN Time Seen by Provider: 10/23/19 19:27 Primary Care Provider: CLAUDIA NG MD [Primary Care Provider] - Follow up as needed TRAVEL OUTSIDE OF THE [place] IN LAST 30 DAYS: No - HPI Notes: Patient is a 64-year-old female with a history of high blood pressure, diabetes, who presents to the emergency department for evaluation of right arm pain after a fall. She was trying to get out of the rain, slipped, fell. She is unsure as to how she landed on her arm, but has had proximal right arm pain since then. She denies hitting her head or losing consciousness. No neck or back pain. He is not on any blood thinners. She has never had an orthopedic injury in the past. - Related Data Allergies/Adverse Reactions: No Known Allergies Allergy (Verified 10/23/19 19:26) Home Medications: Novolog. Lantus. Januvia Past Medical History - General Information source: Patient - Social History Smoking Status: Never Smoker Lives with: Family Family History: DM, Hypertension Patient has suicidal ideation: No Patient has homicidal ideation: No - Past Medical History Cardiac Medical History: Reports: Hx Hypertension Pulmonary Medical History: Reports: None EENT Medical History: Reports: None Neurological Medical History: Reports: None Endocrine Medical History: Reports: Hx Diabetes Mellitus Type 2 Renal/ Medical History: Reports: None. Denies: Hx Peritoneal Dialysis Malignancy Medical History: Reports: Hx Colorectal Cancer - Surgical excision GI Medical History: Reports: None Musculoskeletal Medical History: Reports None Skin Medical History: Reports None Psychiatric Medical History: Reports: None Traumatic Medical History: Reports: None Infectious Medical History: Reports: None Surgical Hx: Negative - Immunizations Immunizations up to date: Yes Hx Diphtheria, Pertussis, Tetanus Vaccination: Yes Hx Pneumococcal Vaccination: 04/27/14 Review of Systems - Review of Systems Musculoskeletal: See HPI -: Yes All other systems reviewed and negative Physical Exam - Vital signs Vitals: Temp Pulse Resp BP Pulse Ox 97.8 F 91 20 133/77 H 98 10/23/19 17:46 10/23/19 17:46 10/23/19 17:46 10/23/19 17:46 10/23/19 17:46 - Notes Notes: Vital signs reviewed, please refer to chart. Head is normocephalic, atraumatic. Pupils equal round, reactive to light. Neck is supple without meningismus. Heart is regular rate and rhythm. Lungs are clear to auscultation bilaterally. Abdomen is soft, nontender, normoactive bowel sounds throughout. Extremities without cyanosis, clubbing. Posterior calves are nontender. Examination of the right upper extremity yields no obvious deformity. She has pain with passive range of motion, attempted only minimally, at the shoulder. She has full active and passive range of motion at the elbow, wrist, fingers, thumb. Radial pulse 2+, capillary refill is brisk, sensation is intact. Course - Re-evaluation Re-evalutation: 10/23/19 23:26 Patient presents to the emergency department for evaluation. She was given ibuprofen and had an x-ray through triage. Her x-ray reveals an greater tuberosity humeral fracture. She is placed in the sling. She is neurovascular intact following. We will send her to follow-up with on-call orthopedic surgeon. She is also sent home with a short course of Blanco for more severe pain. She is warned about side effects with this medication, as well as possible dependence. She voiced understanding. She is to return to the ED with worsening or new concerning symptoms of any sort. - Vital Signs Vital signs: Temp Pulse Resp BP Pulse Ox 98.3 F 71 20 121/71 97 10/23/19 22:11 10/23/19 22:11 10/23/19 22:11 10/23/19 22:11 10/23/19 22:11 - Diagnostic Test Radiology reviewed: Reports reviewed Radiology results interpreted by me: 10/23/19 23:27 Humerus X-Ray 10/23/19 19:31 IMPRESSION: Minimally displaced greater tuberosity fracture. Shoulder X-Ray 10/23/19 19:31 IMPRESSION: Minimally displaced greater tuberosity fracture. Discharge - Discharge Clinical Impression: Right arm pain Greater tuberosity of humerus fracture Qualifiers: Encounter type: initial encounter Fracture type: closed Fracture alignment: displaced Laterality: right Qualified Code(s): S42.251A - Displaced fracture of greater tuberosity of right humerus, initial encounter for closed fracture Fall Qualifiers: Encounter type: initial encounter Qualified Code(s): W19.XXXA - Unspecified fall, initial encounter Condition: Stable Disposition: HOME, SELF-CARE Instructions: Sling as Treatment ([facility]) Additional Instructions: Fracture Proximal Humerus There is a fracture at the upper end of the humerus, near the shoulder joint. Your physician has assessed the fracture's severity and has determined that it will heal well without surgery or "setting." The typical shoulder fracture doesn't need a cast. It's best treated by binding the arm down with a special sling. Ice packs are used to reduce pain and swelling. After early healing has occurred, [id number] exercises are prescribed for the shoulder. Complete healing may take three to six weeks, depending on the age of the patient and the severity of the fracture. Call the doctor or return at once if the arm becomes numb, or if pain or swelling become severe. Referrals: CLAUDIA NG MD [Primary Care Provider] - Follow up as needed BEN WOOD MD [ACTIVE PROVISIONAL STAFF] - Follow up as needed
[2019-10-23 23:56] VITALS: BP 128/76
== END 2019-10-23 23:56 | disposition home or self-care (01) ==
LOC: ER 17:12
DX: S42.251A Displaced fracture of greater tuberosity of right humerus, initial encounter for closed fracture (principal); M79.601 Pain in right arm; W01.0XXA Fall on same level from slipping, tripping and stumbling without subsequent striking against object, initial encounter; I10 Essential (primary) hypertension; E11.9 Type 2 diabetes mellitus without complications
CPT/HCPCS: 99283

== ENCOUNTER 2019-10-28 13:09 | Emergency (ER) | payer OTHER ==
--- NOTE | 2019-10-28 13:41 | ER Document Report ---
HPI - HPI Time Seen by Provider: 10/28/19 13:34 Context: Patient is a 64-year-old female with a history of high blood pressure and diabetes who presents to the emergency department with a chief complaint of right arm pain. Patient states she was seen here on October 23 after a fall being diagnosed with a fracture of the upper arm. Patient reports she has been wearing her sling but on Monday she was walking over to her neighbor's house, cut across the yard and tripped over an object. Patient reports at that time she did not become dizzy, have shortness of breath or chest pain. Patient reports she fell onto her right arm which was in a sling at the time. Patient reports that she continues to have the right upper arm pain but now is having right elbow and right forearm pain. Patient denies any other injury during the second fall. Patient reports she attempted to call her primary care physician today but was told to come to the emergency department for repeat x-rays. - REPRODUCTIVE Reproductive: DENIES: : Past Medical History - General Information source: Patient - Social History Smoking Status: Unknown if Ever Smoked Lives with: Family Family History: DM, Hypertension - Past Medical History Cardiac Medical History: Reports: Hx Hypertension Pulmonary Medical History: Reports: None EENT Medical History: Reports: None Neurological Medical History: Reports: None Endocrine Medical History: Reports: Hx Diabetes Mellitus Type 2 Renal/ Medical History: Reports: None. Denies: Hx Peritoneal Dialysis Malignancy Medical History: Reports: Hx Colorectal Cancer - Surgical excision GI Medical History: Reports: None Musculoskeletal Medical History: Reports None Skin Medical History: Reports None Psychiatric Medical History: Reports: None Traumatic Medical History: Reports: None Infectious Medical History: Reports: None Surgical Hx: Negative - Immunizations Immunizations up to date: Yes Hx Diphtheria, Pertussis, Tetanus Vaccination: Yes Hx Pneumococcal Vaccination: 04/27/14 Vertical Provider Document - CONSTITUTIONAL Agree With Documented VS: Yes Exam Limitations: No Limitations General Appearance: No Apparent Distress - INFECTION CONTROL TRAVEL OUTSIDE OF THE [place] IN LAST 30 DAYS: No - HEENT HEENT: Atraumatic, Normal ENT Exam, Normocephalic, PERRLA - NECK Neck: Normal Inspection - RESPIRATORY Respiratory: Breath Sounds Normal, No Respiratory Distress - CARDIOVASCULAR Cardiovascular: Regular Rate, Regular Rhythm - GI/ABDOMEN Gastrointestinal: Abdomen Soft, Abdomen Non-Tender, Normal Bowel Sounds - BACK Back: Normal Inspection - MUSCULOSKELETAL/EXTREMETIES Notes: Right arm is in a sling. There is no obvious deformity to the right arm. Patient has diffuse tenderness in nonspecific areas to the right humerus, right elbow and right forearm. Patient has full range of motion to the right elbow joint. Patient has a +2 palpable brachial and radial pulse. No obvious swelling, ecchymosis or edema. <2 sec cap refill in all digits of right hand. - NEURO Level of Consciousness: Awake, Alert, Appropriate - DERM Integumentary: Warm, Dry, No Rash Course - Re-evaluation Re-evalutation: 10/28/19 13:41 We will obtain an x-ray of the right humerus, elbow and forearm. Patient to remain in a sling. 10/28/19 15:[address] Saab the radiologist who read the x-ray. I did ask him to compare the imaging from today and on the . No significant change noted. - Vital Signs Vital signs: Temp Pulse Resp BP Pulse Ox 97.5 F 97 20 108/54 L 97 10/28/19 13:31 10/28/19 13:31 10/28/19 13:31 10/28/19 13:31 10/28/19 13:31 Discharge - Discharge Clinical Impression: Right arm pain Greater tuberosity of humerus fracture Qualifiers: Encounter type: subsequent encounter Fracture type: closed Fracture alignment: displaced Laterality: right Fracture healing: with routine healing Qualified Code(s): S42.251D - Displaced fracture of greater tuberosity of right humerus, subsequent encounter for fracture with routine healing Fall Qualifiers: Encounter type: subsequent encounter Qualified Code(s): W19.XXXD - Unspecified fall, subsequent encounter Condition: Stable Disposition: HOME, SELF-CARE Additional Instructions: *Today was seen the emergency department after a fall. You did fall onto the recently injured and fractured extremity. We did repeat your x-rays which did not show any significant difference when compared to October 23. Please continue to use the sling. Please follow-up with your primary care physician as well as orthopedics. Fracture Proximal Humerus There is a fracture at the upper end of the humerus, near the shoulder joint. Your physician has assessed the fracture's severity and has determined that it will heal well without surgery or "setting." The typical shoulder fracture doesn't need a cast. It's best treated by binding the arm down with a special sling. Ice packs are used to reduce pain and swelling. After early healing has occurred, [id number] exercises are prescribed for the shoulder. Complete healing may take three to six weeks, depending on the age of the patient and the severity of the fracture. Call the doctor or return at once if the arm becomes numb, or if pain or swelling become severe. Referrals: CLAUDIA NG MD [Primary Care Provider] - Follow up as needed OSMAN LEE DO [ACTIVE STAFF] - Follow up as needed
--- NOTE | 2019-10-28 14:27 | RADIOLOGY REPORT (SQ) ---
EXAM DESCRIPTION: HUMERUS RIGHT COMPLETED DATE/TIME: 10/28/2019 2:07 pm REASON FOR STUDY: Fall onto already injured arm COMPARISON: AP and lateral views of the humerus from 10/23/2019. NUMBER OF VIEWS: Two views. TECHNIQUE: Two radiographic images were acquired of the right humerus to include elbow and shoulder in at least one projection. LIMITATIONS: None. FINDINGS: MINERALIZATION: Osteopenia. BONES: Acute comminuted and displaced fracture of the greater trochanter of the humerus. There is no associated dislocation of the glenohumeral joint. SOFT TISSUES: No radiopaque foreign body. OTHER: Osteoarthrosis of the AC joint. IMPRESSION: Acute comminuted and displaced fracture of the greater trochanter of the humerus. There is no associated dislocation of the glenohumeral joint. TECHNICAL DOCUMENTATION: JOB ID: [id number] 2010 [id number]- All Rights Reserved Reading location - IP/workstation name: [email or web address]
--- NOTE | 2019-10-28 14:28 | RADIOLOGY REPORT (SQ) ---
EXAM DESCRIPTION: FOREARM RIGHT COMPLETED DATE/TIME: 10/28/2019 2:07 pm REASON FOR STUDY: Fall onto already injured arm COMPARISON: None. NUMBER OF VIEWS: Two views. TECHNIQUE: Two radiographic images acquired of the right forearm, including elbow and wrist in at le ast one projection. LIMITATIONS: None. FINDINGS: MINERALIZATION: Osteopenia. BONES: No acute fracture. No periosteal reaction. SOFT TISSUES: No radiopaque foreign body. OTHER: No other finding. IMPRESSION: No acute osseous abnormality of the right forearm. TECHNICAL DOCUMENTATION: JOB ID: [id number] 2010 [employer]- All Rights Reserved Reading location - IP/workstation name: [email or web address]
--- NOTE | 2019-10-28 14:32 | RADIOLOGY REPORT (SQ) ---
EXAM DESCRIPTION: ELBOW RIGHT OVER 2 VIEWS COMPLETED DATE/TIME: 10/28/2019 2:07 pm REASON FOR STUDY: Fall onto already injured arm COMPARISON: None. NUMBER OF VIEWS: Four views. TECHNIQUE: AP, lateral, and both oblique radiographic images acquired of the right elbow. LIMITATIONS: None. FINDINGS: MINERALIZATION: Osteopenia. BONES: No acute fracture or dislocation. JOINT: No effusion. SOFT TISSUES: No soft tissue swelling. OTHER: No other finding. IMPRESSION: No acute osseous abnormality of the right elbow. TECHNICAL DOCUMENTATION: JOB ID: [id number] 2010 [employer] All Rights Reserved Reading location - IP/workstation name: [email or web address]
[2019-10-28 15:23] VITALS: BP 110/60
== END 2019-10-28 15:24 | disposition home or self-care (01) ==
LOC: ER 13:09
DX: S42.251D Displaced fracture of greater tuberosity of right humerus, subsequent encounter for fracture with routine healing (principal); M79.601 Pain in right arm; W19.XXXD Unspecified fall, subsequent encounter; E11.9 Type 2 diabetes mellitus without complications; I10 Essential (primary) hypertension
CPT/HCPCS: 99283

== ENCOUNTER → 2019-11-04 | Outpatient (CLI) | payer OTHER ==
[2019-11-04 09:43] LABS: ABSOLUTE EOSINOPHILS # (AUTO) 0.2 10^3/uL (0.0-0.6); ABSOLUTE LYMPHOCYTES (AUTO) 2.1 10^3/uL (0.5-4.7); ABSOLUTE MONOCYTES (AUTO) 0.5 10^3/uL (0.1-1.4); ABSOLUTE NEUT (AUTO) 6.6 10^3/uL (1.7-8.2); BASOPHILS % (AUTO) 0.4 % (0-2); EOSINOPHILS % (AUTO) 1.8 % (0-6); HEMATOCRIT 35.1 % (36.0-47.0); HEMOGLOBIN 11.8 g/dL (12.0-15.5); LYMPHOCYTES % (AUTO) 21.9 % (13-45); MEAN CORPUSCULAR HEMOGLOBIN 29.9 pg (27.0-33.4); MEAN CORPUSCULAR HGB CONC 33.6 g/dL (32.0-36.0); MEAN CORPUSCULAR VOLUME 89 fl (80-97); MONOCYTES % (AUTO) 5.7 % (3-13); PLATELET COUNT 225 10^3/uL (150-450); RED BLOOD COUNT 3.95 10^6/uL (3.72-5.28); RED CELL DISTRIBUTION WIDTH 12.6 % (11.5-14.0); SEGMENTED NEUTROPHILS % (AUTO) 70.2 % (42-78); TOTAL CELLS COUNTED % (AUTO) 100 %; WHITE BLOOD COUNT 9.4 10^3/uL (4.0-10.5)
[2019-11-04 09:59] LABS: CALCIUM 9.5 mg/dL (8.4-10.2); PHOSPHORUS 4.1 mg/dL (2.5-4.5)
[2019-11-04 12:01] LABS: APPEARANCE,URINE SLIGHTLY-CLOUDY; BILIRUBIN,URINE NEGATIVE (NEGATIVE); COLOR,URINE YELLOW; GLUCOSE, URINE 150 mg/dL (NEGATIVE); KETONES,URINE NEGATIVE (NEGATIVE); LEUKOCYTE ESTERASE,URINE MODERATE (NEGATIVE); NITRITE,URINE NEGATIVE (NEGATIVE); PROTEIN,URINE NEGATIVE (NEGATIVE); URINE SPECIFIC GRAVITY 1.021; UROBILINOGEN,URINE NEGATIVE mg/dL (<2.0)
[2019-11-04 12:06] LABS: CALCIUM 9.5 mg/dL (8.4-10.2); PHOSPHORUS 4.1 mg/dL (2.5-4.5)
[2019-11-04 12:19] LABS: ANION GAP 10 (5-19); BLOOD UREA NITROGEN 46 mg/dL (7-20); CARBON DIOXIDE 27 mmol/L (22-30); CHLORIDE 99 mmol/L (98-107); GLUCOSE 243 mg/dL (75-110); POTASSIUM 5.4 mmol/L (3.6-5.0)
== END ==
LOC: OD 09:19
DX: I12.9 Hypertensive chronic kidney disease with stage 1 through stage 4 chronic kidney disease, or unspecified chronic kidney disease (principal); N18.3 Chronic kidney disease, stage 3 (moderate); E11.22 Type 2 diabetes mellitus with diabetic chronic kidney disease
CPT/HCPCS: 36415; 80069; 81001; 82310; 83735; 83970; 84100; 85025

== ENCOUNTER → 2019-12-20 | Outpatient (CLI) | payer OTHER ==
[2019-12-20 10:58] LABS: ABSOLUTE EOSINOPHILS # (AUTO) 0.4 10^3/uL (0.0-0.6); ABSOLUTE LYMPHOCYTES (AUTO) 2.3 10^3/uL (0.5-4.7); ABSOLUTE MONOCYTES (AUTO) 0.5 10^3/uL (0.1-1.4); ABSOLUTE NEUT (AUTO) 6.3 10^3/uL (1.7-8.2); BASOPHILS % (AUTO) 0.5 % (0-2); HEMATOCRIT 34.5 % (36.0-47.0); HEMOGLOBIN 11.8 g/dL (12.0-15.5); LYMPHOCYTES % (AUTO) 23.9 % (13-45); MEAN CORPUSCULAR HEMOGLOBIN 30.3 pg (27.0-33.4); MEAN CORPUSCULAR HGB CONC 34.2 g/dL (32.0-36.0); MEAN CORPUSCULAR VOLUME 89 fl (80-97); MONOCYTES % (AUTO) 5.7 % (3-13); PLATELET COUNT 241 10^3/uL (150-450); RED BLOOD COUNT 3.88 10^6/uL (3.72-5.28); RED CELL DISTRIBUTION WIDTH 12.8 % (11.5-14.0); SEGMENTED NEUTROPHILS % (AUTO) 65.9 % (42-78); TOTAL CELLS COUNTED % (AUTO) 100 %; WHITE BLOOD COUNT 9.6 10^3/uL (4.0-10.5)
[2019-12-20 11:23] LABS: ANION GAP 8 (5-19); BLOOD UREA NITROGEN 44 mg/dL (7-20); CALCIUM 9.3 mg/dL (8.4-10.2); CARBON DIOXIDE 30 mmol/L (22-30); CHLORIDE 99 mmol/L (98-107); GLUCOSE 105 mg/dL (75-110); POTASSIUM 5.7 mmol/L (3.6-5.0)
== END ==
LOC: CCC 10:08
PROVIDERS: ATTEND Internal Medicine
DX: D64.9 Anemia, unspecified (principal); N18.9 Chronic kidney disease, unspecified; E11.22 Type 2 diabetes mellitus with diabetic chronic kidney disease
CPT/HCPCS: 36415; 80048; 85025

== ENCOUNTER → 2019-12-23 | Outpatient (CLI) | payer OTHER ==
--- NOTE | 2019-12-23 16:30 | RADIOLOGY REPORT (SQ) ---
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 NUMBER OF VIEWS: Three views. TECHNIQUE: Internal rotation, external rotation, and Y view images acquired of the right shoulder. LIMITATIONS: None. FINDINGS: MINERALIZATION: Normal. BONES: Subacute impacted fracture of the greater trochanter of the humerus. There is no acute fractu re. The glenohumeral joint is in anatomic alignment. JOINTS: Osteoarthrosis of the AC joint. VISUALIZED LUNGS AND RIBS: Chronic fracture of the right posterolateral 7th rib. SOFT TISSUES: No radiopaque foreign body. OTHER: No other finding. IMPRESSION: Subacute impacted fracture of the greater trochanter of the humerus. TECHNICAL DOCUMENTATION: JOB ID: [id number] 2010 [employer]- All Rights Reserved Reading location - IP/workstation name: [email or web address]
== END ==
LOC: CCC 12:55
PROVIDERS: ATTEND Internal Medicine
DX: S42.391A Other fracture of shaft of right humerus, initial encounter for closed fracture (principal); X58.XXXA Exposure to other specified factors, initial encounter; E87.5 Hyperkalemia; N18.3 Chronic kidney disease, stage 3 (moderate)
CPT/HCPCS: 36415; 84132

== ENCOUNTER → 2020-01-24 | Outpatient (CLI) | payer OTHER ==
[2020-01-24 10:49] LABS: ANION GAP 9 (5-19); BLOOD UREA NITROGEN 44 mg/dL (7-20); CALCIUM 9.4 mg/dL (8.4-10.2); CARBON DIOXIDE 28 mmol/L (22-30); CHLORIDE 99 mmol/L (98-107); GLUCOSE 308 mg/dL (75-110); POTASSIUM 5.5 mmol/L (3.6-5.0)
== END ==
LOC: CCC 09:22
PROVIDERS: ATTEND Internal Medicine
DX: I10 Essential (primary) hypertension (principal); E11.8 Type 2 diabetes mellitus with unspecified complications; N18.3 Chronic kidney disease, stage 3 (moderate)
CPT/HCPCS: 36415; 80048; 83036

== ENCOUNTER → 2020-01-28 | Outpatient (CLI) | payer OTHER | LOC: OD 10:00 | PROVIDERS: ATTEND Internal Medicine | DX: E87.5 Hyperkalemia (principal) | CPT/HCPCS: 36415; 84132 ==

== ENCOUNTER → 2020-02-11 | Outpatient (CLI) | payer MEDICARE, MEDICAID ==
[2020-02-11 10:09] LABS: ABSOLUTE EOSINOPHILS # (AUTO) 0.2 10^3/uL (0.0-0.6); ABSOLUTE LYMPHOCYTES (AUTO) 1.9 10^3/uL (0.5-4.7); ABSOLUTE MONOCYTES (AUTO) 0.5 10^3/uL (0.1-1.4); ABSOLUTE NEUT (AUTO) 5.6 10^3/uL (1.7-8.2); BASOPHILS % (AUTO) 0.5 % (0-2); EOSINOPHILS % (AUTO) 2.4 % (0-6); HEMATOCRIT 34.7 % (36.0-47.0); HEMOGLOBIN 11.9 g/dL (12.0-15.5); LYMPHOCYTES % (AUTO) 22.8 % (13-45); MEAN CORPUSCULAR HEMOGLOBIN 30.5 pg (27.0-33.4); MEAN CORPUSCULAR HGB CONC 34.4 g/dL (32.0-36.0); MEAN CORPUSCULAR VOLUME 89 fl (80-97); MONOCYTES % (AUTO) 6.3 % (3-13); PLATELET COUNT 194 10^3/uL (150-450); RED BLOOD COUNT 3.92 10^6/uL (3.72-5.28); RED CELL DISTRIBUTION WIDTH 12.5 % (11.5-14.0); TOTAL CELLS COUNTED % (AUTO) 100 %; WHITE BLOOD COUNT 8.3 10^3/uL (4.0-10.5)
[2020-02-11 10:13] LABS: APPEARANCE,URINE SLIGHTLY-CLOUDY; BILIRUBIN,URINE NEGATIVE (NEGATIVE); COLOR,URINE YELLOW; GLUCOSE, URINE >=500 mg/dL (NEGATIVE); KETONES,URINE NEGATIVE (NEGATIVE); LEUKOCYTE ESTERASE,URINE MODERATE (NEGATIVE); NITRITE,URINE NEGATIVE (NEGATIVE); PROTEIN,URINE NEGATIVE (NEGATIVE); URINE SPECIFIC GRAVITY 1.017; UROBILINOGEN,URINE NEGATIVE mg/dL (<2.0)
[2020-02-11 10:27] LABS: ANION GAP 9 (5-19); BLOOD UREA NITROGEN 42 mg/dL (7-20); CALCIUM 9.3 mg/dL (8.4-10.2); CARBON DIOXIDE 26 mmol/L (22-30); CHLORIDE 97 mmol/L (98-107); GLUCOSE 298 mg/dL (75-110); IRON(TIBC) 82.8 ug/dL (37-170); PHOSPHORUS 3.9 mg/dL (2.5-4.5); POTASSIUM 4.8 mmol/L (3.6-5.0)
== END ==
LOC: OD 09:13
PROVIDERS: ATTEND Physician Assistant Medical
DX: E11.22 Type 2 diabetes mellitus with diabetic chronic kidney disease (principal); I12.9 Hypertensive chronic kidney disease with stage 1 through stage 4 chronic kidney disease, or unspecified chronic kidney disease; N18.3 Chronic kidney disease, stage 3 (moderate); D64.9 Anemia, unspecified; E87.5 Hyperkalemia
CPT/HCPCS: 36415; 80069; 81001; 82728; 83540; 83550; 83970; 85025

== ENCOUNTER → 2020-02-11 | Outpatient (CLI) | payer OTHER | LOC: CCC 09:20 | PROVIDERS: ATTEND Internal Medicine | DX: N18.3 Chronic kidney disease, stage 3 (moderate) (principal); E87.5 Hyperkalemia | CPT/HCPCS: 36415; 84132 ==

== ENCOUNTER 2020-03-02 11:00 | Emergency (ER) | payer MEDICARE, MEDICAID ==
[2020-03-02] MEDS ORDERED: ACETAMINOPHEN 325 MG TABLET PO ONE (11:11)
[2020-03-02] MEDS ORDERED: CEPHALEXIN 500 MG CAPSULE PO ONE (11:11)
--- NOTE | 2020-03-02 11:16 | ER Document Report ---
ED Extremity Problem, Lower - General Chief Complaint: Toe Injury Stated Complaint: LEFT GREAT TOE PAIN,SWELLING Time Seen by Provider: 03/02/20 11:05 Primary Care Provider: [facility] [NO LOCAL MD] - Follow up as needed Mode of Arrival: Ambulatory Information source: Patient Notes: 65-year-old female presented to ED for complaint of pain to the left great toe and second toe. She states they have been inflamed for about a week and hurting. She has not called her doctor seen a doctor. She does have very crooked toenails that have been there for a long time to these 2 toes. There is no actual infection at this time. They are mildly inflamed. She does have a history of diabetes blood pressure and kidney problems. Her sugar this morning she stated was 112. She does not smoke drink or use any drugs. TRAVEL OUTSIDE OF THE [place] IN LAST 30 DAYS: No - HPI Patient complains to provider of: Pain, Swelling - Left great toe Location: Great Toe Occurred: Last week Onset/Duration: Gradual Quality of pain: Achy, Burning Severity: Mild Pain Level: 2 Context: Other - Left great toenail growing sideways Recent injury: No Associated symptoms: Painful ambulation Exacerbated by: Walking Relieved by: Elevation - Related Data Allergies/Adverse Reactions: No Known Allergies Allergy (Verified 10/28/19 13:34) Past Medical History - General Information source: Patient - Social History Smoking Status: Never Smoker Frequency of alcohol use: None Drug Abuse: None Lives with: Family Family History: DM, Hypertension Patient has homicidal ideation: No - Past Medical History Cardiac Medical History: Reports: Hx Hypertension Pulmonary Medical History: Reports: None EENT Medical History: Reports: None Neurological Medical History: Reports: None Endocrine Medical History: Reports: Hx Diabetes Mellitus Type 2 Renal/ Medical History: Reports: Hx Renal Insufficiency Malignancy Medical History: Reports: Hx Colorectal Cancer - Surgical excision GI Medical History: Reports: None Musculoskeletal Medical History: Reports None Skin Medical History: Reports None Psychiatric Medical History: Reports: None Traumatic Medical History: Reports: None Infectious Medical History: Reports: None Past Surgical History: Reports: Hx Abdominal Surgery, Hx Bowel Surgery - Immunizations Immunizations up to date: Yes Hx Diphtheria, Pertussis, Tetanus Vaccination: Yes Hx Pneumococcal Vaccination: 04/27/14 Review of Systems - Review of Systems Constitutional: No symptoms reported EENT: No symptoms reported Cardiovascular: No symptoms reported Respiratory: No symptoms reported Gastrointestinal: No symptoms reported Genitourinary: No symptoms reported Female Genitourinary: No symptoms reported Musculoskeletal: No symptoms reported Skin: Other - Pain redness to left great toe toenail growing sideways Hematologic/Lymphatic: No symptoms reported Neurological/Psychological: No symptoms reported -: Yes All other systems reviewed and negative Physical Exam - Vital signs Vitals: Temp Pulse Resp BP Pulse Ox 98.7 F 95 18 129/73 H 98 03/02/20 11:04 03/02/20 11:04 03/02/20 11:04 03/02/20 11:04 03/02/20 11:04 Interpretation: Normal - General General appearance: Appears well, Alert - HEENT Head: Normocephalic, Atraumatic Eyes: Normal Pupils: PERRL - Respiratory Respiratory status: No respiratory distress Chest status: Nontender Breath sounds: Normal Chest palpation: Normal - Cardiovascular Rhythm: Regular Heart sounds: Normal auscultation Murmur: No - Abdominal Inspection: Normal Distension: No distension Bowel sounds: Normal Tenderness: Nontender Organomegaly: No organomegaly - Back Back: Normal, Nontender - Extremities General upper extremity: Normal inspection, Nontender, Normal color, Normal ROM, Normal temperature General lower extremity: Normal ROM, Normal temperature, Normal weight bearing. No: Will's sign Foot: Tender - Red great toe around the nail. There is no actual infection at this time the nail is growing sideways, No evidence of FB - Neurological Neuro grossly intact: Yes Cognition: Normal Orientation: AAOx4 Jossy Coma Scale Eye Opening: Spontaneous Jossy Coma Scale Verbal: Oriented Jossy Coma Scale Motor: Obeys Commands Jossy Coma Scale Total: 15 Speech: Normal Motor strength normal: LUE, RUE, LLE, RLE Sensory: Normal - Psychological Associated symptoms: Normal affect, Normal mood - Skin Skin Temperature: Warm Skin Moisture: Dry Skin Color: Normal Course - Re-evaluation Re-evalutation: 03/02/20 22:05 Patient was instructed to soak foot in Epson salt apply bacitracin and she was given a prescription for Keflex. She was instructed to please follow-up with podiatry. There is no obvious paronychia no obvious infection but there is redness and tenderness to the surrounding area surrounding the toenail. Her toenail is growing sideways. This toenail has been growing sideways for a while but it is now irritating her. Patient is diabetic. Patient verbalized understanding and agreement with treatment plan and patient was discharged home. - Vital Signs Vital signs: Temp Pulse Resp BP Pulse Ox 98.7 F 95 18 129/73 H 98 03/02/20 11:04 03/02/20 11:04 03/02/20 11:04 03/02/20 11:04 03/02/20 11:04 Discharge - Discharge Clinical Impression: Pain of left great toe, Toenail growing sideways Condition: Stable Disposition: HOME, SELF-CARE Additional Instructions: You were seen today for pain in your left great toe. That your left great toenail is growing sideways. Epsom Salt Soaks Soak the wound area in a container of warm epsom salt water. If you can't get the wound area into a bucket or larson, use a folded towel soaked in the epsom salt solution and apply to the area. Use clean hot tap water (about the temperature of a very warm bath), mixing in about one (1) teaspoon for every pint of water. Two gallon --> 16 teaspoons Epsom Salts One gallon --> 8 teaspoons Epsom Salts Two quarts --> 4 teaspoons Epsom Salts One quart --> 2 teaspoons Epsom Salts Soak the wound for about 20 minutes while gently moving it around in the water. Repeat this four (4) times a day. Cephalexin The antibiotic you've been prescribed is a member of the cephalosporin class. This type of antibiotic covers a wide variety of infections, including those of the skin, lungs, and urinary tract. It's useful for staph infections. This antibiotic is slightly similar to the penicillin family. In rare cases, a person who is allergic to penicillin will also be allergic to this medication. If you have had a severe allergic reaction to penicillin, and have not taken this antibiotic since that time, notify your doctor. Antibiotics which cover many germs ("broad spectrum" antibiotics) are more likely to cause diarrhea or "yeast" infections. Women prone to vaginal yeast problems may suffer an attack after taking this antibiotic. In infants, oral thrush (white spots "stuck" on the cheek) or yeast diaper rash may result. See your doctor if these problems occur. Call at once if you develop itching, hives, shortness of breath, or lightheadedness. Acetaminophen Acetaminophen may be taken for pain relief or fever control. It's much safer than aspirin, offering a wider range of "safe" dosages. It is safe during . Some brand names are Tylenol, Panadol, Datril, Anacin 3, Tempra, and Liquiprin. Acetaminophen can be repeated every four hours. The following are maximum recommended dosages: WEIGHT Dose Drops Elixir Chewable(80mg) (LBS.) drprs=droppers tsp=teaspoon 6 40 mg .4 ml (1/2) 6-11 80 mg .8 ml (full) 1/2 tsp 1 tab 12-16 120 mg 1 1/2 drprs 3/4 tsp 1 1/2 tabs 17-23 160 mg 2 drprs 1 tsp 2 tabs 24-30 240 mg 3 drprs 1 1/2 tsp 3 tabs 30-35 320 mg 2 tsp 4 tabs 36-41 360 mg 2 1/4 tsp 4 1/2 tabs 42-47 400 mg 2 1/2 tsp 5 tabs 48-53 480 mg 3 tsp 6 tabs 54-59 520 mg 3 1/4 tsp 6 1/2 tabs 60-64 560 mg 3 1/2 tsp 7 tabs 65-70 600 mg 3 3/4 tsp 7 1/2 tabs 71-76 640 mg 4 tsp 8 tabs 77-82 720 mg 4 1/2 tsp 9 tabs 83-88 800 mg 5 tsp 10 tabs >89 pounds or adults 650 mg to 900 mg Acetaminophen can be repeated every four hours. Maximum daily dose not to exceed 4000 mg. These maximum recommended dosages are slightly higher than the dosages wr itten on the product container, but these dosages are very safe and well below the toxic dosage for acetaminophen. FOLLOW-UP CARE: If you have been referred to a physician for follow-up care, call the physicians office for an appointment as you were instructed or within the next two days. If you experience worsening or a significant change in your symptoms, notify the physician immediately or return to the Emergency Department at any time for re-evaluation. Prescriptions: Cephalexin Monohydrate [Keflex 500 mg Capsule] 500 mg PO QID #20 capsule Referrals: [facility] [NO LOCAL MD] - Follow up as needed
[2020-03-02 11:20] VITALS: BP 129/73
== END 2020-03-02 11:23 | disposition home or self-care (01) ==
LOC: ER 11:00
DX: M79.675 Pain in left toe(s) (principal); L60.8 Other nail disorders; I10 Essential (primary) hypertension; E11.9 Type 2 diabetes mellitus without complications
CPT/HCPCS: 99283; A9270 ×2